=== PATIENT | male | born 1955 | race Caucasian/White ===

== ENCOUNTER 2020-07-20 09:03 | Emergency (ER) | payer OTHER ==
[~2020-07-20] VITALS: Ht 180.3 cm; Wt 127.2 kg
--- NOTE | 2020-07-20 09:36 | PHYS DOC ---
Past Medical History Past Medical History: Diabetes-Type II, GERD, High Cholesterol, Hypertension Past Surgical History: Appendectomy, Knee Replacement, Tonsillectomy Additional Past Surgical Histo: HERNIA,CARDIAC STENTS,HAND Smoking Status: Current Every Day Smoker Alcohol Use: Rarely General Adult EDM: Chief Complaint: Hemoptysis HPI: HPI: This is a pleasant 64-year-old male with a history of COPD and diabetes and coronary artery disease status post a few stents about a year ago and on Plavix and aspirin who presents the emergency department today with hemoptysis. Over the past 24 hours she has had a few episodes of about a half dollar size of sputum with blood in it. It is a dark red in color. He denies any chest pain and denies any shortness of breath more than his usual COPD symptoms. He denies vomiting or abdominal pain fevers or chills. He was tested for Covid yesterday which was negative he reports. Location lungs. Duration intermittent. No alleviating or exacerbating factors. Review of systems negative for abdominal pain vomiting fevers chills headache. All other review of systems negative. ED course: 64-year-old male presenting the emergency department today with hemo ptysis. On arrival the patient heart rate is within normal limits. Pulse ox within normal limits. Blood pressure within normal limits. Afebrile. Blood work shows a mild leukopenia. Chemistry panel unremarkable other than mild hyponatremia. Troponin and proBNP within normal limits. D-dimer was elevated so CT angiogram was performed. CT angiogram shows no evidence of PE. Right upper lobe nodule present 8 mm. Patient is high risk and will receive a repeat CAT scan in 3 months. I communicated this to the patient. Patient does have evidence of multifocal pneumonia superimposed on central lobar emphysema. Chest x-ray shows a left perihilar infiltrate. Given the patient's chronic COPD we will give the patient oral amoxicillin and doxycycline and have him follow-up with his doctor in 1 to 2 days. He is return for any worsening symptoms. The patient has been examined and was not found to have an emergency medical condition. The patient was then discharged home in stable condition to follow up with their primary care physician over the next 1-2 days. They were to return if their symptoms worsened or if they were concerned for any reason. They were also instructed to return to the emergency department if they were unable to get the recommended and appropriate follow-up. [id number] discharge instructions and return precautions were given. Patient's questions were answered to their satisfaction. Patient is comfortable with plan. EKG shows sinus rhythm with a regular rate. ST segments are not suggestive of acute ischemia. Nonspecific T wave flattening in the inferior leads. Heart Score: C/O Chest Pain: No Risk Factors: Risk Factors: DM, Current or recent (<one month) smoker, HTN, HLP, family his tory of CAD, obesity. Risk Scores: Score 0 - 3: 2.5% MACE over next 6 weeks - Discharge Home Score 4 - 6: 20.3% MACE over next 6 weeks - Admit for Clinical Observation Score 7 - 10: 72.7% MACE over next 6 weeks - Early Invasive Strategies Allergies: Allergies: Allergies Coded Allergies Type Severity Reaction Last Updated Verified No Known Drug Allergies 07/20/20 No Physical Exam: PE: Constitutional: Well developed, well nourished, no acute distress, non-toxic appearance. [] HENT: Normocephalic, atraumatic, bilateral external ears normal, oropharynx moist, no oral exudates, nose normal. [] Eyes: PERRLA, EOMI, conjunctiva normal, no discharge. [] Neck: Normal range of motion, no tenderness, supple, no stridor. [] Cardiovascular:Heart rate regular rhythm, no murmur [] Lungs & Thorax: Bilateral breath sounds clear to auscultation [] no wheezing. No crackles. Normal inspiratory and expiratory phase. Breathing comfortable in the exam room satting well on room air. Abdomen: Bowel sounds normal, soft, no tenderness, no masses, no pulsatile masses. [] Skin: Warm, dry, no erythema, no rash. [] Back: No tenderness, no CVA tenderness. [] Extremities: No tenderness, no cyanosis, no clubbing, ROM intact, no edema. [] Neurologic: Alert and oriented X 3, normal motor function, normal sensory function, no focal deficits noted. [] Psychologic: Affect normal, judgement normal, mood normal. [] Current Patient Data: Vital Signs: Vital Signs Date Time Temp Pulse Resp B/P (MAP) Pulse Ox O2 Delivery O2 Flow Rate FiO2 07/20/20 09:25 98.0 95 22 147/94 (111) 95 Room Air 98.0 EKG: EKG: [] Radiology/Procedures: Radiology/Procedures: [] Course & Med Decision Making: Course & Med Decision Making Pertinent Labs and Imaging studies reviewed. (See chart for details) [] Karine Disclaimer: Karine Disclaimer: This electronic medical record was generated, in whole or in part, using a voice recognition dictation system. Departure Departure Impression: Primary Impression: Hemoptysis Additional Impressions: Cough with hemoptysis Pneumonia Disposition: DC HOME SELF CARE/HOMELESS Condition: STABLE Referrals: MICHELLE RODRIGUEZ MD Patient Instructions: Pneumonia, Adult Additional Instructions: EMERGENCY DEPARTMENT GENERAL DISCHARGE INSTRUCTIONS Follow-up with your primary physician in 1 to 2 days. Return to the emergency department if you have any new or concerning findings. Thank you for coming to [facility] Emergency Department (ED) today and trusting us with you care. We trust that you had a positive experience in our Emergency Department. If you wish to speak to the department management, you may call the Director at [phone]. Follow up is important in emergency/acute care visits. This condition should be evaluated by your primary care physician and any necessary consulting services for continued management within a few days (1-2) after discharge. Return to the emergency department if you have any new or concerning symptoms including but not limited to fever, chills, nausea, vomiting, intractable pain, any new rashes, chest pain, shortness of breath, uncontrolled bleeding, difficulty breathing, and/or vision loss. 1. Do you have a private Doctor? If you do not have a private doctor, please ask for a resource list of physicians or clinics that may be able to assist you with follow up care. 2. If a lab test or culture has been done and does not come back immediately, your results will be reviewed and you will be notified if you need a change in treatment. 3. Your care today has been supervised by a physician who is specially trained in emergency care. Many problems require more than one evaluation for a complete diagnosis and treatment. We recommend that you schedule your follow up appointment as recommended to ensure complete treatment of you illness or in jury. If you are unable to obtain follow up care and continue to have a problem, or if your condition worsens, we recommend that you return to the ED. 4. We are not able to safely determine your condition over the phone nor are we able to give sound medical advice over the phone. For these safety reasons, if you call for medical advice we will ask you to come to the ED for further evaluation. IF YOUR SYMPTOMS WORSEN OR NEW SYMPTOMS DEVELOP, OR YOU HAVE CONCERNS ABOUT YOUR CONDITION; OR IF YOUR CONDITION WORSENS WHILE YOU ARE WAITING FOR YOUR FOLLOW UP APPOINTMENT; EITHER CONTACT YOUR PRIMARY CARE DOCTOR, THE PHYSICIAN WHOSE NAME AND NUMBER YOU WERE GIVEN, OR RETURN TO THE ED IMMEDIATELY. Scripts Amoxicillin/Potassium Clav (AUGMENTIN 875-125 TABLET) 1 Each Tablet 1 TAB PO BID for 10 Days, #20 TAB 0 Refills Prov: MITZY JARA MD 07/20/20 Azithromycin (AZITHROMYCIN TABLET) 250 Mg Tablet 1 PKG PO UD, #6 TAB Prov: MITZY JARA MD 07/20/20 MITZY JARA MD Jul 20, 2020 09:36
[2020-07-20 10:03] LABS: CALCIUM 8.2 mg/dL (8.5-10.1); CREATININE 0.8 mg/dL (0.7-1.3); GFR 97.6; POTASSIUM 3.9 mmol/L (3.5-5.1)
[2020-07-20 10:04] LABS: BASO % 0 % (0-3); EOS # 0.1 x10^3/uL (0.0-0.7); EOS % 2 % (0-3); HEMOGLOBIN 15.9 g/dL (13.0-17.5); LYMPH # 1.3 x10^3/uL (1.0-4.8); LYMPH % 36 % (24-48); MEAN CORPUSCULAR HEMOGLOBIN 31 pg (25-35); MEAN CORPUSCULAR HGB CONC 34 g/dL (31-37); MEAN CORPUSCULAR VOLUME 92 fL (79-100); MONO # 0.4 x10^3/uL (0.0-1.1); MONO % 12 % (0-9); NEUT # 1.9 x10^3/uL (1.8-7.7); NEUT % 50 % (31-73); PLATELET COUNT 147 x10^3/uL (140-400); RED BLOOD COUNT 5.12 x10^6/uL (4.30-5.70); RED CELL DISTRIBUTION WIDTH 13.7 % (11.5-14.5); WHITE BLOOD COUNT 3.7 x10^3/uL (4.0-11.0)
[2020-07-20 10:10] LABS: ALBUMIN 3.4 g/dL (3.4-5.0); DIRECT BILIRUBIN 0.1 mg/dL (0.0-0.2); TOTAL BILIRUBIN 0.3 mg/dL (0.2-1.0)
[2020-07-20 10:11] LABS: PROTHROMBIN TIME PATIENT 13.4 SEC (11.7-14.0)
[2020-07-20 10:23] LABS: D-DIMER 0.8 ug/mlFEU (0.00-0.50)
--- NOTE | 2020-07-20 10:33 | RAD ---
AP chest. HISTORY: Chest pain, coughing up blood AP view was taken of the chest. Heart is normal in size. There is no pleural effusion. There is minim al left perihilar hazy infiltrate versus hemorrhage. IMPRESSION: 1. Mild left perihilar filtrate. Electronically signed by: Marko Rowland MD (07/20/2020 10:30 AM) [id number]
[2020-07-20 11:30] VITALS: BP 135/82
[2020-07-20] MEDS ORDERED: IOHEXOL 350 MG/ML 100 ML VIAL. IV ONE (11:30)
[2020-07-20] MEDS ORDERED: CONTRAST GIVEN. MC PRN (11:30)
--- NOTE | 2020-07-20 12:00 | RAD ---
EXAM: CT Pulmonary Angiogram INDICATION: Reason: elevated dimer, hemoptysis, exclude pe / Spl. Instructions: omni 350 100 ml / His tory: TECHNIQUE: Multi-detector row images were acquired from the thoracic inlet through the upper abdomen with the use of IV contrast. Sagittal and coronal images were acquired from the transaxial data. LA P images of the pulmonary arteries were obtained. All CT scans performed at this facility utilize dos e optimization techniques as appropriate to the exam, including the following: Automated exposure con trol and adjustment of the mA and/or KV according to patient size (this includes techniques or standa rdized protocols for targeted exams where dose is indication/reason for exam). IV CONTRAST: Administered COMPARISON: Chest x-ray earlier the same day FINDINGS: PULMONARY ARTERIES: No pulmonary emboli are identified. CARDIOVASCULAR: Coronary artery calcification or stenting is evident. Aorta is normal caliber. MEDIASTINUM & NED: Calcified mediastinal lymph nodes. Mild prominence of the bilateral hilar lymph n odes and to a lesser extent mediastinal lymph nodes with largest mediastinal node measuring 1.2 cm in short axis diameter in the right lower paratracheal felipe station but also showing preserved fatty h ilum. LUNGS: Centrilobular emphysema. Multifocal groundglass opacities bilaterally, notably in the medial r ight upper lobe, and in the dependent aspect of the left upper lobe as well as in the perihilar right lower lobe. There is a 9 mm nodule in the posterior right upper lobe abutting the pleura (image 38 s eries 3). PLEURAL SPACE: No pleural effusions or pneumothorax. OSSEOUS & SOFT TISSUE: Multilevel spinal degenerative changes. ABDOMEN: Hepatomegaly and diffuse hepatic steatosis. 1.6 cm pancreatic tail low-density oval mass is partially imaged. IMPRESSION: 1. No evidence of pulmonary emboli but there is evidence of multifocal pneumonia superimposed on cent rilobular emphysema. 2. Right upper lobe nodule 8 mm in size. Per Fleishner society recommendations, if the patient is at low risk for lung cancer, recommend CT in 6-12 months and consider if stable, additional follow-up at 18-24 months. If the patient is considered high risk for lung cancer, consider CT in 3 months, PET/C T or biopsy. 3. A partially imaged 1.6 cm low-density mass in the pancreatic tail could represent a pancreatic braxton l cyst but is incompletely characterized on this examination. Pancreas protocol abdominal MRI with an d without IV contrast is suggested in further evaluation. Electronically signed by: Zelda Boyd MD (07/20/2020 11:58 AM) [id number]
[2020-07-20] MEDS ORDERED: AZIT250T6 PO (12:28)
[2020-07-20] MEDS ORDERED: AMOX1TAB61 PO (12:28)
== END 2020-07-20 12:37 | disposition home or self-care (01) ==
LOC: ER 09:03
DX: J18.9 Pneumonia, unspecified organism (principal); R04.2 Hemoptysis; E11.9 Type 2 diabetes mellitus without complications; K21.9 Gastro-esophageal reflux disease without esophagitis; E78.00 Pure hypercholesterolemia, unspecified; I10 Essential (primary) hypertension; F17.200 Nicotine dependence, unspecified, uncomplicated; Z90.89 Acquired absence of other organs; Z98.890 Other specified postprocedural states
CPT/HCPCS: 36415; 71045; 71275; 80048; 80076; 83690; 83880; 84484; 85025; 85379; 85610; 99285; Q9967